=== PATIENT | female | born 1990 | race African-American/Black ===

== ENCOUNTER 2025-10-25 15:52 | Emergency (ER) | payer OTHER ==
[~2025-10-25] VITALS: Ht 152.4 cm; Wt 56.8 kg
[2025-10-25 18:45] VITALS: BP 145/81; TEMP 101.9; O2SAT 100
[2025-10-25] MEDS: ACETAMINOPHEN 325 MG TAB PO ONE (18:47)
== END 2025-10-25 18:54 | disposition home or self-care (01) ==
LOC: EDBD 15:52 → M ED 15:52
DX: J09.X2 Influenza due to identified novel influenza A virus with other respiratory manifestations (principal); R50.9 Fever, unspecified